=== PATIENT | female | born 2000 | race Two or more races ===

== ENCOUNTER 2024-01-02 15:08 | Emergency (ER) | payer OTHER ==
[~2024-01-02] VITALS: Ht 157.5 cm; Wt 48.0 kg
[2024-01-02] MEDS: cefTRIAXone SOD 1,000 MG VL IM ONE (16:45)
[2024-01-02] MEDS: HYDROcodone-ACET 5/325MG TAB PO ONE (16:45)
[2024-01-02] MEDS ORDERED: NAPR-746 PO (16:58)
[2024-01-02] MEDS ORDERED: CEPH500C PO (16:58)
[2024-01-02 17:03] VITALS: BP 124/78; PULSE 91; RESP 20; TEMP 98.8; O2SAT 97
== END 2024-01-02 17:16 | disposition home or self-care (01) ==
LOC: ER 15:08
DX: S62.637A Displaced fracture of distal phalanx of left little finger, initial encounter for closed fracture (principal); S61.307A Unspecified open wound of left little finger with damage to nail, initial encounter; Z79.899 Other long term (current) drug therapy; W22.8XXA Striking against or struck by other objects, initial encounter; Y93.89 Activity, other specified; Y92.89 Other specified places as the place of occurrence of the external cause; Y99.8 Other external cause status
CPT/HCPCS: 11730; 29130; 73140; 96372; 99284; J0696